=== PATIENT | female | born 2005 | race Caucasian/White ===

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

== ENCOUNTER 2023-01-17 12:53 | Outpatient (REF) | payer MEDICAID, SELFPAY ==
[2023-01-18 23:43] LABS: Chlamydia Result Invalid (Negative); GC Result Invalid (Negative)
== END 2023-01-17 12:54 | disposition home or self-care (01) ==
LOC: LBN 12:53
PROVIDERS: Visit Provider Advanced Practice Midwife
DX: N89.8 Other specified noninflammatory disorders of vagina (principal); Z11.3 Encounter for screening for infections with a predominantly sexual mode of transmission
CPT/HCPCS: 87491; 87591; 87480; 87510; 87660